=== PATIENT | female | born 1940 | race Asian ===

== ENCOUNTER 2019-03-02 10:40 | Emergency (ER) | payer OTHER ==
[~2019-03-02] VITALS: Ht 157.5 cm; Wt 47.3 kg
[2019-03-02 10:42] VITALS: BP 132/98
--- NOTE | 2019-03-02 10:52 | NUR ---
Patient ambulated to bed 7 with family. RN evaluating patient at bedside.
--- NOTE | 2019-03-02 11:11 | NUR ---
PT AMBULATED TO RESTROOM WITH CANE W THE ASSISTANCE OF HER DAUGHTER
--- NOTE | 2019-03-02 11:12 | NUR ---
Dr. Busch evaluating patient at bedside.
--- NOTE | 2019-03-02 11:39 | NUR ---
PT C/O INTERMITTENT CHEST PAIN RADIATING TO THE BACK 4/10 AND TIGHT X1 DAY. PT STATES SHE HAS INTERMITTENT NAUSEA, NO VOMITING. PER HER DAUGHTER, SHE GETS "A LITTLE SWEATY" WHEN SHE DOES HAVE THE BOUT OF CHEST PAIN. PT SKIN IS WARM/DRY AT THIS TIME, O2 IS 99% ON RA. PT SPEAKING IN CLEAR SENTENCES IN [place] TO HER DAUGHTER, PER DAUGHTER, PT IS SPEAKING ABOUT SOMETHING THAT HAPPENED 20 YEARS AGO DUE TO HER DEMENTIA. PT REPORTS TAKING NITRO SL TAB WHEN SHE HAS CP, SHE STATES SHE HAS NOT TAKEN IT TODAY. PT HAS A HX OF [place]. PT REPORTS TAKING ASPIRIN TODAY. PT PLACED IN GOWN AND ON BEDSIDE OUTPATIENT PROGRAM COORDINATOR, BED IN LOW POSITION, SIDE RAIL UP X1.
[2019-03-02] MEDS ORDERED: ASPIRIN 81 MG TAB.CHEW PO ONE (11:40)
[2019-03-02] MEDS ORDERED: NACL 0.9% 1,000 ML IV ONE (11:40)
[2019-03-02] MEDS ORDERED: NITROGLYCERIN 2% 1 GM PKT TP ONE (11:40)
[2019-03-02 12:03] LABS: BASOPHILS # (AUTO) 0.1 K/uL (0.00-0.22); BASOPHILS % (AUTO) 0.9 % (0.0-2.0); EOSINOPHILS # (AUTO) 0.1 K/uL (0-0.4); EOSINOPHILS % (AUTO) 1.1 % (0.0-4.0); HEMATOCRIT 47.5 % (36-48); LYMPHOCYTES # (AUTO) 1.9 K/uL (2.5-16.5); LYMPHOCYTES % (AUTO) 31.3 % (20.5-51.1); MEAN CORPUSCULAR HEMOGLOBIN 32 pg (27-31); MEAN CORPUSCULAR HGB CONC 34 g/dL (33-37); MEAN CORPUSCULAR VOLUME 94.5 fL (80-94); MONOCYTES # (AUTO) 0.6 K/uL (0.8-1.0); MONOCYTES % (AUTO) 9.4 % (1.7-9.3); NEUTROPHILS # (AUTO) 3.4 K/uL (1.8-7.7); NEUTROPHILS % (AUTO) 57.3 % (42.2-75.2); PLATELET COUNT (AUTO) 194 K/uL (140-450); RED BLOOD CELL COUNT(AUTO) 5.03 MIL/uL (4.20-5.40); RED CELL DISTRIBUTION WIDTH 14.7 % (11.6-13.7)
[2019-03-02] MEDS ORDERED: ATI.5 PO (12:03)
[2019-03-02] MEDS ORDERED: TRAM50TA1 PO (12:03)
[2019-03-02] MEDS ORDERED: GABA100C PO (12:03)
[2019-03-02] MEDS ORDERED: ISOS10TA9 PO (12:03)
[2019-03-02] MEDS ORDERED: ASPI-1718 PO (12:03)
[2019-03-02] MEDS ORDERED: FURO-572 PO (12:03)
[2019-03-02] MEDS ORDERED: MULT-1993 PO (12:03)
[2019-03-02] MEDS ORDERED: CARV3.12 PO (12:03)
--- NOTE | 2019-03-02 12:03 | NUR ---
[facility] departed ED with the patient.
[2019-03-02 12:04] VITALS: BP 106/70
--- NOTE | 2019-03-02 12:06 | NUR ---
Patient to be transferred to [facility]. Is being transferred due to THE NEED FOR HIGHER LEVEL OF CARE. Receiving facility has accepting physician and available space. ER physician has signed transfer form. Patient or responsible democrat has agreed to transfer and signed form. Patient belongings inventoried and will be sent with patient. Copy of nursing notes, lab reports, EKG, Physicians Orders and X-rays to be sent with patient. Report called to ROBYN GAVIRIA at receiving facility. [facility] ambulance service has been called for transfer. ETA is 15 MIN.
[2019-03-02 12:09] LABS: ANION GAP 13.2 (8-16); CHLORIDE 101 mmol/L (98-107); CREATININE 0.8 mg/dL (0.6-1.3); GLUCOSE 151 mg/dL (74-106); POTASSIUM 4.2 mmol/L (3.5-5.1); SODIUM SERUM 138 mmol/L (136-145); UREA NITROGEN, BLOOD 16 mg/dL (7-18)
[2019-03-02 12:14] LABS: ALBUMIN 3.6 g/dL (3.4-5.0); ASPARTATE AMINOTRANSFERASE 19 U/L (15-37); TOTAL BILIRUBIN 0.9 mg/dL (0.0-1.0)
[2019-03-02 12:15] LABS: PROTHROMBIN TIME 10.1 secs (10.8-13.4)
== END 2019-03-02 12:06 | disposition short-term general hospital (02) ==
LOC: MED 10:40
DX: I21.3 ST elevation (STEMI) myocardial infarction of unspecified site (principal); F03.90 Unspecified dementia, unspecified severity, without behavioral disturbance, psychotic disturbance, mood disturbance, and anxiety; I25.2 Old myocardial infarction; Z79.82 Long term (current) use of aspirin; Z79.899 Other long term (current) drug therapy
CPT/HCPCS: 36415; 80053; 81002; 81025; 84484; 85025; 85610; 85730; 93005; 99285; J7030; 99284